=== PATIENT | female | born 1970 | race Caucasian/White ===

== ENCOUNTER → 2016-10-24 | Outpatient (CLI) | payer BC, OTHER ==
[~2016-10-24] MED LIST: LEVO50TA6 PO; LISI-461 PO; OXYC-57 PO
== END | disposition home or self-care (01) ==
LOC: C.LABSPEC 10:47
PROVIDERS: ATTEND Family Medicine
DX: N39.0 Urinary tract infection, site not specified (principal)

== ENCOUNTER → 2017-05-08 | Outpatient (CLI) | payer BC, OTHER ==
[~2017-05-08] MED LIST changes: -OXYC-57 PO
--- NOTE | 2017-05-08 13:34 | MAMMOGRAPHY REPORT ---
BILATERAL DIGITAL SCREENING MAMMOGRAM TOMOSYNTHESIS WITH CAD: 05/08/2017 CLINICAL HISTORY: Routine screening. Patient has no complaints. TECHNIQUE: Breast tomosynthesis in addition to standard 2D mammography was performed. Current study was also evaluated with a Computer Aided Detection (CAD) system. COMPARISON: Comparison is made to exams dated: 05/14/2016 mammogram, 05/14/2016 ultrasound, 05/07/2016 mammogram, 03/19/2015 mammogram, 02/10/2014 mammogram, and 02/04/2013 mammogram - [facility] enter. BREAST COMPOSITION: There are scattered areas of fibroglandular density in both breasts. FINDINGS: No suspicious masses, calcifications, or areas of architectural distortion are noted in ei ther breast. There has been no significant interval change compared to prior exams. IMPRESSION: ACR BI-RADS CATEGORY 1: NEGATIVE There is no mammographic evidence of malignancy. A 1 year screening mammogram is recommended. The pa tient will receive written notification of the results. Approximately 10% of breast cancers are not detected with mammography. A negative mammographic report should not delay biopsy if a clinically suggestive mass is present. Autumn Vanegas M.D. /:05/08/2017 07:58:30 Activities Volunteer: Mandy KUMAR(Lex)(Deborah), [facility] letter sent: Normal 1/2 BI-RADS Code: ACR BI-RADS Category 1: Negative
== END | disposition home or self-care (01) ==
LOC: C.MAMM 07:36
PROVIDERS: ATTEND Obstetrics & Gynecology
DX: Z12.31 Encounter for screening mammogram for malignant neoplasm of breast (principal)

== ENCOUNTER 2018-01-20 16:48 | Emergency (ER) | payer OTHER ==
[~2018-01-20] VITALS: Ht 170.2 cm; Wt 96.0 kg
[2018-01-20 16:57] VITALS: TEMP 36.7; Ht 170.2 cm; Wt 96.0 kg
[2018-01-20] MEDS ORDERED: LISI-725 PO (18:12)
--- NOTE | 2018-01-20 18:13 | DIAGNOSTIC IMAGING REPORT ---
CT OF THE CERVICAL SPINE CLINICAL HISTORY: Headache and neck pain. Trauma. COMPARISON STUDY: No previous studies for comparison. CT DOSE: TECHNIQUE: CT scan of the cervical spine was performed from the skull base to the thoracic inlet. Images are reviewed in the axial, sagittal, and coronal planes. IV contrast was not administered for this examination. A dose lowering technique was utilized adhering to the principles of ALARA. FINDINGS: The visualized portions of the lung apices reveal no evidence of pneumothorax. The prevertebral soft tissues are normal. No fractures or subluxations are visualized. There is a slight reversal of the normal cervical lordosis. There are moderate degenerative changes most pronounced the C4-5 and C5-C6 levels. IMPRESSION: No evidence of acute fracture or traumatic subluxation. Electronically signed by: Héctor Macias M.D. 01/20/2018 6:12 PM Dictated Date/Time: 01/20/2018 6:10 PM
--- NOTE | 2018-01-20 18:13 | DIAGNOSTIC IMAGING REPORT ---
HEAD WITHOUT CONTRAST (CT) CLINICAL HISTORY: 47 years-old Female presenting with COREA/neck pain. TECHNIQUE: Multidetector CT imaging of the head was performed without the use of intravenous contrast. IV contrast: None. A dose lowering technique was used consistent with the principles of ALARA (as low as reasonably achievable). COMPARISON: 01/11/2013. CT DOSE (mGy.cm): The estimated cumulative dose is 948.21 mGy.cm. FINDINGS: Laboratory Immunologist topogram: Unremarkable. Ventricles and sulci normal in size. Brain parenchyma normal in appearance with preserved russell-white differentiation. No mass effect or midline shift. No hemorrhage or acute territorial infarct. No extra-axial fluid collection. Paranasal sinuses and mastoid air cells clear. Calvarium intact. IMPRESSION: 1. No acute intracranial abnormality. Electronically signed by: Ceferino Adams M.D. 01/20/2018 6:11 PM Dictated Date/Time: 01/20/2018 6:10 PM
[2018-01-20] MEDS ORDERED: LIOT5TAB9 PO (18:15)
[2018-01-20] MEDS ORDERED: CHOL500024 PO (18:18)
[2018-01-20 18:38] VITALS: BP 155/88; PULSE 68; O2SAT 99
--- NOTE | 2018-01-20 19:33 | EMERGENCY ROOM VISIT NOTE ---
History First contact with patient: 17:26 Chief Complaint: NECK PAIN Stated Complaint: NECK/HEAD INJURY-WC History of Present Illness The patient is a 47 year old female who presents to the Emergency Room with complaints of injuries that happened at work this afternoon around 3 PM. 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 The patient reports immediate onset of pain and nausea. The patient reports generalized discomfort over the upper back and shoulder region. She has not noticed any tingling, numbness, paresthesias or burning into the upper extremities. She denies loss of consciousness. The patient does report a prior history of migraines, and took an Excedrin Migraine without any relief. She currently rates her discomfort a 9 out of 10. Review of Systems 10 system review was performed and was negative except for pertinent positives and negatives as indicated in history of present illness Past Medical/Surgical History Medical Problems: (1) Anemia Nos (2) Body Mass Index (Bmi) 33.0-33.9, Adult (3) Diab Latonya Wo Compl, Type Ii Or Unspec Type, Not Uncntrld (4) Dysmetabolic Syndrome X (5) Hypertension Nos (6) Hypothyroidism, Unspecified (7) Migraine (8) Solitary Cyst Of Right Breast (9) Vitamin D Deficiency Nos Surgical Problems: (1) History of tubal ligation Family History FH: cancer FH: diabetes mellitus FH: heart disease FH: hypertension Social History Smoking Status: Never Smoker Alcohol Use: none Drug Use: none Marital Status: Housing Status: lives with family Occupation Status: unemployed Current/Historical Medications Scheduled Cholecalciferol (Vitamin D3 Ultra Potency), 50,000 UNITS PO WEEKLY Levothyroxine Sodium (Levothyroxine Sodium), 50 MCG PO QAM Liothyronine Sodium (Liothyronine Sodium), 5 MCG PO DAILY Lisinopril (Zestril), 20 MG PO DAILY Physical Exam Vital Signs Date Time Temp Pulse Resp B/P (MAP) Pulse Ox O2 Delivery O2 Flow Rate FiO2 01/20/18 18:38 68 18 155/88 99 01/20/18 16:57 36.7 70 18 167/94 99 Room Air Physical Exam CONSTITUTIONAL: Healthy and well nourished. Alert and oriented X 3 with positive affect. GCS 15. Patient does not appear in any acute distress. HEENT: Normocephalic, atraumatic. No scalp abrasions or hematomas. Pupils equal, round and reactive. No subconjunctival hemorrhage, epistaxis, hemotympanum, raccoon's eyes or lenz sign. NECK: Examination shows generalized discomfort to palpation of the cervical musculature. RESPIRATORY: Clear to auscultation bilaterally with no wheezing, crackles, rhonchi or stridor. CARDIOVASCULAR: Regular rate and rhythm with no murmurs, rubs or gallops. MUSCULOSKELETAL: Full range of motion of all joints without discomfort. Range of motion of the shoulders does not worsen discomfort. The patient has no focal tenderness through the central thoracolumbar spine or ribs. Patient has mild tenderness through the bilateral medial trapezius region without palpable spasm. INTEGUMENTARY: No rash or other significant dermatologic conditions noted. NEUROLOGIC: No focal neurologic deficits noted. Negative pronator drift. No ataxia with ambulation. Medical Decision & Procedures ER Provider Diagnostic Interpretation: Noncontrast CT of the head and cervical spine is negative for intracranial bleed , skull fracture or cervical spine fracture. Cervical lordotic straightening is noted. Radiologist reports were also reviewed. ED Course Patient history and physical exam were performed. Nurse's notes were reviewed. Vital signs were reviewed, showing an elevated blood pressure 167/94. The patient does not appear in any acute distress, although she rates her discomfort a 9 out of 10. The patient refused any analgesics or antiemetics. Given her acute onset of symptoms, I did recommend CT scans of the head and cervical spine, discussing the risks of radiation exposure, and conservative management options. Through shared medical decision making, the patient elected to undergo CT scans. Noncontrast CT of the head and cervical spine were normal. At this point, I explained that the patient's symptoms are likely secondary to cervical strain. She currently does not have an abundance of symptoms to suggest concussion. The patient was encouraged to intermittently apply ice to the neck. She was encouraged alternate ibuprofen and Tylenol as needed for pain. The patient reports that she will follow-up with her Worker's Compensation physician for further reevaluation as she does not suspect that she will be able to return to work given her job duties. The patient was instructed to return to the emergency department for any significantly worsening symptoms. The patient was happy with plan of care, voiced understanding of all discharge instructions, and rated her discomfort a 5 out of 10 at the conclusion of my exam. The patient was also encouraged to follow-up with her PCP for blood pressure recheck. Medical Decision Medication Reconcilliation Current Medication List: was personally reviewed by me Blood Pressure Screening Patient's blood pressure: Elevated blood pressure Impression Primary Impression: Cervical strain, acute Additional Impressions: Work related injury Elevated blood pressure reading Departure Information Dispostion Home / Self-Care Condition [employer] HOME CARE DOCUMENTATION FORM, IMPORTANT VISIT INFORMATION Patient Instructions Neck Strain - [facility], [facility] Additional Instructions Intermittently apply ice to neck. Ibuprofen 800 mg and/or Tylenol 1000 mg every 8 hours. You may also alternate these medications for more effective pain relief: Ibuprofen --4 HRS--> Tylenol --4 HRS--> ibuprofen --4 HRS--> Tylenol .... Follow-up with your Worker's Compensation physician for further reevaluation and management. Problem Qualifiers Primary Impression: Cervical strain, acute Encounter type: initial encounter Qualified Codes: S16.1XXA - Strain of muscle, fascia and tendon at neck level, initial encounter
== END 2018-01-20 18:40 | disposition home or self-care (01) ==
LOC: C.EDB 16:49 → C.EDD 18:40
DX: S16.1XXA Strain of muscle, fascia and tendon at neck level, initial encounter (principal); W20.8XXA Other cause of strike by thrown, projected or falling object, initial encounter; Y99.0 Civilian activity done for income or pay; R11.0 Nausea; M25.511 Pain in right shoulder; M25.512 Pain in left shoulder; R40.2412 Glasgow coma scale score 13-15, at arrival to emergency department; E11.9 Type 2 diabetes mellitus without complications; I10 Essential (primary) hypertension; E03.9 Hypothyroidism, unspecified; Z79.899 Other long term (current) drug therapy